=== PATIENT | female | born 1985 | race Caucasian/White ===

== ENCOUNTER → 2017-02-01 | Outpatient (CLI) | payer OTHER | END | disposition home or self-care (01) | LOC: CFH 12:30 | PROVIDERS: ATTEND Family Medicine | DX: N63.10 Unspecified lump in the right breast, unspecified quadrant (principal) | CPT/HCPCS: 76641; G0204 ==

== ENCOUNTER → 2017-02-22 | Outpatient (CLI) | payer OTHER ==
[~2017-02-22] MED LIST: No meds per pt.
== END ==
LOC: STAR 13:27 → MERGE 13:30
PROVIDERS: ATTEND Surgery
DX: Z02.9 Encounter for administrative examinations, unspecified (principal)

== ENCOUNTER 2017-02-26 06:39 | Day surgery (SDC) | payer OTHER ==
[~2017-02-26] VITALS: Ht 152.4 cm; Wt 104.1 kg
[~2017-02-26 06:39] MED LIST changes: +BUPIVACAINE/PF 0.5% ONE; +EPINEPHRINE 1 MG/ML, 1ML ONE
[2017-02-26] MEDS ORDERED: LACTATED RINGERS 1,000 ML IV SCH (07:12)
[2017-02-26 07:14] VITALS: BP 114/78
[2017-02-26 07:32] LABS: HCG UR SG 1.029 (1.003-1.030)
[2017-02-26] MEDS ORDERED: DEXAMETHASONE 4 MG/ML, 1ML ONE (08:48)
[2017-02-26] MEDS ORDERED: MIDAZOLAM 1 MG/ML, 2ML ONE (08:48)
[2017-02-26] MEDS ORDERED: ONDANSETRON 2MG/ML, 2ML ONE (08:48)
[2017-02-26] MEDS ORDERED: FENTANYL PF 100 MCG/2ML ONE (08:48)
[2017-02-26] MEDS ORDERED: PROPOFOL 10 MG/ML, 20ML ONE (08:48)
[2017-02-26] MEDS ORDERED: CEFAZOLIN 1,000 MG ONE (08:48)
[2017-02-26] MEDS ORDERED: KETAMINE 10 MG/ML, 20ML ONE (08:57)
[2017-02-26] MEDS ORDERED: LABETALOL 5MG/ML, 20ML IV PRN (09:30)
[2017-02-26] MEDS ORDERED: OXYcodone 5 MG/5 ML ORAL.SOL UDC PO PRN (09:30)
[2017-02-26] MEDS ORDERED: ACETAMINOPHEN 325 MG TABLET PO PRN (09:30)
[2017-02-26] MEDS ORDERED: MIDAZOLAM 1 MG/ML, 2ML IV PRN (09:30)
[2017-02-26] MEDS ORDERED: FENTANYL PF 100 MCG/2ML IV PRN (09:30)
[2017-02-26] MEDS ORDERED: ONDANSETRON 2MG/ML, 2ML IVPush PRN (09:30)
[2017-02-26] MEDS ORDERED: ALBUTEROL SULFATE 2.5 MG/3 ML NPPB PRN (09:30)
[2017-02-26] MEDS ORDERED: PROMETHAZINE 25 MG/ML, 1ML IV PRN (09:30)
[2017-02-26] MEDS ORDERED: MEPERIDINE/PF 25MG/0.5ML IVPush PRN (09:30)
[2017-02-26] MEDS ORDERED: HYDROmorphone 1 MG/ML, 1ML IV PRN (09:30)
[2017-02-26] MEDS ORDERED: hydrALAzine 20 MG/ML, 1ML IV PRN (09:30)
[2017-02-26] MEDS ORDERED: OXYcodone 5 MG/5 ML ORAL.SOL UDC ONE (09:54)
[2017-02-26] MEDS ORDERED: ACETAMINOPHEN 650 MG/20.3 ML UDC ONE (09:54)
== END 2017-02-26 12:28 ==
LOC: OUT 06:39 → MERGE 09:00 → OUT 12:28
PROVIDERS: ATTEND Surgery
DX: D24.1 Benign neoplasm of right breast (principal); E66.01 Morbid (severe) obesity due to excess calories; Z68.45 Body mass index [BMI] 70 or greater, adult; Z72.89 Other problems related to lifestyle
CPT/HCPCS: 19120; 81025; 88307; J0171; J0690; J1100; J2250; J2405; J2704; J3010; J3490; J7120